=== PATIENT | male | born 1950 | race Caucasian/White ===

== ENCOUNTER 2016-09-03 20:14 | Emergency (ER) | payer OTHER ==
[2016-09-03] MEDS ORDERED: CEFTRIAXONE 1 GM VIAL ONE (22:33)
[2016-09-03] MEDS ORDERED: SODIUM CHLORIDE 0.9% 1,000 ML ONE (22:34)
[2016-09-03] MEDS ORDERED: SODIUM CHLORIDE 0.9% 100 ML IV ONE (22:34)
== END 2016-09-03 23:44 | disposition home or self-care (01) ==
LOC: ER 20:14
DX: N18.9 Chronic kidney disease, unspecified (principal); N30.00 Acute cystitis without hematuria; Z79.01 Long term (current) use of anticoagulants; Z79.899 Other long term (current) drug therapy
CPT/HCPCS: 36415; 80053; 81001; 85025; 85610; 85730; 87077; 87088; 87186; 96361; 96365; 99283; J0696